=== PATIENT | male | born 1970 | race Caucasian/White ===

== ENCOUNTER 2017-09-28 06:14 | Outpatient (CLI) | payer OTHER ==
[~2017-09-28] VITALS: Ht 177.8 cm; Wt 95.5 kg
--- NOTE | ~2017-09-28 | HEMODYNAMI ---
PATIENT:CESAR BEDOLLA JR MEDICAL RECORD: [id number] : 66 LOCATION:[facility] ADMISSION DATE: 09/28/17 Generatedon:09/28/20178:22 Patient name: CESAR BEDOLLA Patient #: [id number] SSN: : 1970 Date of study: 09/28/2017 Page: Of Hemodynamic Procedure Report Patient Data Patient Demographics Procedure consent was obtained First Name: CESAR Gender: Male Last Name: CHIOMA Suffix: [facility] Initial: Artem : 1970 Patient #: [id number] Age: 46 year(s) Race: Unknown Additional ID: [id number] Contact details Address: [facility] [address] State: [place] City: [place] Zip code: [address] Past Medical History Allergies: No known allergies Admission Admission Data Admission Date: 09/28/2017 Admission Time: 6:14 Lab Results Lab Result Date: 09/28/2017 Lab Result Time: 0:00 Biochemistry Name Units Result Min Max BUN mg/dl 21 --(----)-* 7 18 Creatinine mg/dl 1.6 --(----)-* 0.6 1.3 CBC Name Units Result Min Max Hemoglobin g/dl 17.4 --(---*)-- 13.5 17.5 Procedure Procedure Types Cath Procedure Diagnostic Procedure [facility] w/Coronaries Sedation Charges Moderate Sedation up to 15 minutes Procedure Description Procedure Date Procedure Date: 09/28/2017 Procedure Start Time: 8:00 Procedure End Time: 8:20 Procedure Staff Name Function Luico Hylton MD Performing Physician Mary Murguia RT Scrub Homa Shi RN Nurse Alberto Salinas RT Monitor Procedure Data Cath Procedure Fluoroscopy Diagnostic fluoroscopy Total fluoroscopy Time: 4.5 time: 4.5 min min Diagnostic fluoroscopy Total fluoroscopy dose: 926 dose: 926 mGy mGy Contrast Material Contrast Material Type Amount (ml) Isovue 300 88 Entry Location Entry Primary Successful Side Size Upsize Upsize Entry Closure Brar ccessful Closure Location (Fr) 1 (Fr) 2 (Fr) Remarks Device Remarks Radial Right 6 Fr Mechanical artery Short Compression Estimated blood loss: 5 ml Diagnostic catheters Device Type Used For End Catheter Placement DIAGNOSTIC Michael 110cm Procedure 5Fr catheter ([id number]) DIAGNOSTIC [place] 110cm 5 Procedure Fr catheter ([id number]) DIAGNOSTIC Susan 5Fr Procedure catheter ([id number]) Procedure Complications No complications Procedure Medications Medication Administration Route Dosage Versed I.V. 1 mg Fentanyl I.V. 50 mcg Versed I.V. 1 mg Versed I.V. 1 mg Hemodynamics Rest HGB: 17.4 (g/dl) Heart Rate: 89 (bpm) Pressure Samples Time Site Value (mmHg) Purpose Heart Use Rate(bpm) 8:04 LV 121/-13,6 Snapshot 96 Gradients Valve Time Site Site Mean SEP/DFP Peak To Heart Use 1 2 (mmHg) (sec/min) Peak Rate (mmHg) (bpm) Aortic 8:04 LV AO 89 Snapshots Pre Cath Intra NCS Post Cath Vital Signs Time Heart Resp SPO2 etCO2 NIBP (mmHg) Rhythm Pain Sedation Rate (ipm) (%) (mmHg) Status Level (bpm) 7:50:38 87 13 94 31.5 135/79(104) NSR 0 (11) 10(A) , No pain 7:55:37 89 19 97 34.5 125/75(0) NSR 0 (11) 10(A) , No pain 8:00:53 84 17 94 34.5 119/74(100) NSR 0 (11) 10(A) , No pain 8:05:52 92 15 95 33.8 115/72(0) NSR 0 (11) 9(A) , No pain 8:08:44 100 18 92 30.8 110/70(87) NSR 0 (11) 9(A) , No pain 8:13:43 89 14 94 36 108/65(0) NSR 0 (11) 9(A) , No pain 8:16:53 88 17 92 37.6 95/59(81) NSR 0 (11) 10(A) , No pain Medications Time Medication Route Dose Verified Delivered Reason Notes Effectivene ss by by 8:00:25 Versed I.V. 1 mg Homa merino Jose Guadalupe Jose Guadalupe sedation RN RN 8:00:33 Fentanyl I.V. 50 Homa Homa for mcg Jose Guadalupe Jose Guadalupe sedation RN RN 8:05:20 Versed I.V. 1 mg Homa Homa for Jose Guadalupe Jose Guadalupe sedation RN RN 8:10:24 Versed I.V. 1 mg Homa Ohma for Jose Guadalupe Jose Guadalupe sedation RN platen builder up Log Time Note 7:23:44 Time tracking: Regular hours (M-F 7:00 - 5:00) 7:23:48 Plan of Care:Hemodynamics will remain stable., Cardiac rhythm will remain stable., Comfort level will be maintained., Respiratory function will remain adequate., Patient/ family verbilizes understanding of procedure., Procedure tolerated without complication., Recovers from procedure without complications.. 7:23:49 Signed procedure consent form obtained from patient. 7:23:59 H&P Date Dictated: 09/20/2017 Within 30 days and on chart., H&P Addendum completed by physician on day of procedure. (MUST COMPLETE FOR ALL OUTPATIENTS). 7:24:09 Patient allergic to No known allergies 7:26:22 Lab Result : BUN 21 mg/dl 7:26:22 Lab Result : Creatinine 1.6 mg/dl 7:26:22 Lab Result : Hemoglobin 17.4 g/dl 7:34:06 Mary Murguia RT(R) sent for patient. Start room use. 7:49:35 Vital chart was started 7:53:59 Patient received from Pre/Post Procedure Room to CCL 1 Alert and oriented. Tansferred to table in Supine position. 7:54:00 Warm blankets applied, and ángel hugger turned on for patient comfort. 7:54:01 Correct patient and procedure confirmed by team. 7:54:03 Baseline sample Acquired. 7:54:59 Rhythm: sinus rhythm 7:55:02 Pre-procedure instructions explained to patient. 7:55:03 Pre-op teaching completed and patient verbalized understanding. 7:55:04 Family in waiting room. 7:55:05 Patient NPO since Midnight. 7:55:07 Is the patient allergic to Iodine/contrast media? No. 7:55:08 Is patient on blood thinner?No 7:55:09 Patient diabetic? No. 7:55:12 Previous problem with sedation/anesthesia? No ? 7:55:13 Snore? Yes 7:55:19 Sleep apnea? Possible. Going for a sleep study soon. 7:55:51 Deviated septum? No 7:55:52 Opens mouth fully? Yes 7:55:53 Sticks out tongue? Yes 7:55:56 Airway obstruction? No ? 7:55:58 Dentures? No ? 7:56:01 Modified Ezio's test Ulnar < 7 seconds 7:56:02 Patient pain scale 0/10 ?. 7:56:10 IV patent on arrival in left wrist with 0.9% NaCl at [facility]. 7:56:13 Lab results completed and on chart. 7:56:16 Right Radial & Right Groin area was prepped with chlora-prep and draped in sterile fashion 7:56:17 Alarms reviewed by R. N. 7:56:17 Sharps counted by scrub and verified by R.N. 7:56:20 Use device set Radial Dx or PCI 7:56:21 ACIST Syringe (64858) opened to sterile field. 7:56:21 Medline Cath Pack ([id number]) opened to sterile field. 7:56:21 Bag Decanter (2002S) opened to sterile field. 7:56:23 ACIST Hand Control (88772) opened to sterile field. 7:56:24 ACIST Manifold (63542) opened to sterile field. 7:56:25 Tegaderm 4 x 4 (1626W) opened to sterile field. 7:56:25 MBrace Wrist Support ([id number]) opened to sterile field. 7:56:45 SHEATH 6Fr Prelude Radial ([id number]) opened to sterile field. 7:56:46 DIAGNOSTIC WIRE .035 260cm J wire (623107) opened to sterile field. 7:57:01 Physician arrived 7:57:01 --------ALL STOP TIME OUT------ 7:57:01 Final Timeout: patient, procedure, and site verified with staff and physician. All members of the team are in agreement. 7:57:03 Right Radial & Right Groin site verified by team. 7:57:05 Physical assessment completed. ASA score P 2 - A patient with mild systemic disease as per Lucio Hylton MD. 7:57:07 Sedation plan: IV Moderate Sedation Medication:Versed, Fentanyl 8:00:06 Zero performed for pressure channel P1 8:00:13 Procedure started. 8:00:13 Full Disclosure recording started 8:00:17 Local anesthetic to right radial artery with Lidocaine 2% by Lucio Hylton MD.INITIAL ACCESS ONLY 8:00:25 Versed 1 mg I.V. was administered by Homa Shi RN; for sedation; 8:00:33 Fentanyl 50 mcg I.V. was administered by Homa Shi RN; for sedation; 8:01:33 A 6 Fr Short sheath was inserted into the Right Radial artery 8:02:57 A DIAGNOSTIC Michael 110cm 5Fr catheter (160595) was advanced over the wire and used for Procedure. 8:04:14 LV gram done using VILCHIS 8:04:16 Injector settings: Ml/sec: 5, Volume: 15, 8:04:17 LV hemodynamics recorded. 8:04:26 EF : 55 % 8:05:20 Versed 1 mg I.V. was administered by Homa Shi RN; for sedation; 8:05:28 RCA angiography performed. 8:06:24 Catheter exchanged over wire. 8:06:36 A DIAGNOSTIC Alg[place] 110cm 5 Fr catheter ([id number]) was advanced over the wire and used for Procedure. 8:08:58 Catheter removed. unable to cannulate vessel. 8:09:06 A DIAGNOSTIC Susan 5Fr catheter (578863) was advanced over the wire and used for Procedure. 8:10:24 Versed 1 mg I.V. was administered by Homa Shi RN; for sedation; 8:11:00 LCA angiography performed. 8:14:21 Catheter removed. 8:16:11 Sheath removed intact; hemostasis achieved with Mechanical Compression to the Right Radial artery. 8:16:12 Procedure ended.(Physican Out) 8:16:41 Fluoroscopy time 04.50 minutes. 8:16:45 Fluoroscopy dose: 926 mGy 8:16:45 Flurop Dose total: 926 8:16:51 Contrast amount:Isovue 300 88ml. 8:16:52 Sharps counted by scrub and verified by R.N. 8:16:58 TR band inflated with 12cc of air. 8:16:59 Insertion/operative site no bleeding no hematoma. 8:17:05 Post right radial artery:stable, soft, clean and dry 8:17:08 Post-procedure physical assessment completed. ASA score P 2 - A patient with mild systemic disease as per Lucio Hylton MD. 8:17:10 Post procedure rhythm: unchanged. 8:17:14 Estimated blood loss: 5 ml 8:17:49 Post procedure instruction explained to patient.Patient verbalizes understanding. 8:17:49 Patient needs reinforcement of post procedure teaching. 8:18:21 Procedure type changed to Cath procedure, Diagnostic procedure, LHC, LHC w/Coronaries, Sedation Charges, Moderate Sedation up to 15 minutes 8:19:32 TR BAND Standard ([id number]) opened to sterile field. 8:19:51 Procedure and supply charges have been captured, reviewed, submitted and are correct. 8:19:54 Procedure Complication : No complications 8:19:56 Vital chart was stopped 8:19:56 See physician's report for complete and final results. 8:19:58 Report given to Pre/Post Procedure Room. 8:20:01 Patient transfered to Pre/Post Procedure Room with Stretcher. 8:20:04 Procedure ended. 8:20:04 Full Disclosure recording stopped 8:20:08 End room use (Document Last) Device Usage Item Name Manufacture Quantity Catalog Number Hospital Part Current M inimal Lot# / Charge Number Stock Stock Serial# Code ACIST Syringe Acist 1 87510 778097 836001 [id number] 2 0 (28588) [employer] Medline Cath Cardinal 1 [id number] 206787 82017 434182 5 Pack Health ([id number]) Bag Decanter Microtek 1 2001S 775757 37029 636434 5 (2001S) Medical Inc. ACIST Hand Acist 1 31893 439302 490536 223249 5 Control (63753) [employer] ACIST Manifold Acist 1 52870 666998 356383 049003 5 (38258) [employer] Tegaderm 4 x 4 3M 1 1626W 335445 193138 096513 5 (1626W) MBrace Wrist Advanced 1 140-0250-00 279910 83715 984259 5 Support Vascular ([id number]) Dynamics SHEATH 6Fr Merit 1 [id number] 043980 850750 535039 5 Prelude Radial Medical ([id number]) DIAGNOSTIC WIRE St Fritz 1 647468 437514 626373 103032 3 0 .035 260cm J wire (242537) DIAGNOSTIC Terumo 1 405023 690438 362048 687830 5 Michael 110cm 5Fr catheter (875664) DIAGNOSTIC Terumo 1 40-5013 431189 721135 762757 5 [place] 110cm 5 Fr catheter (107338) DIAGNOSTIC Terumo 1 405022 535078 234677 537375 5 Susan 5Fr catheter (301920) TR BAND Terumo 1 [id number] 984014 607375 054533 4 0 Standard ([id number]) Signature Audit [place] Stage Time Signature Unsigned Intra-Procedure 09/28/2017 Alberto Salinas 8:22:15 AM RT(R) Signatures Monitor : Alberto Salinas RT Signature : Date : Time : [id number] [place] [address]
[~2017-09-28 06:14] MED LIST: EXFORGE 10-1601 TAB PO; HYDROCODON-ACE1 EAC7 PO; TESTOSTERON200 MG/ML; ZOVIRAX400 MG PO
[2017-09-28 06:50] VITALS: BP 123/80; Ht 177.8 cm; Wt 95.5 kg
[2017-09-28 06:54] LABS: BASOPHILS 0.6 % (0-2); EOSINOPHILS 5.8 % (0-7); HEMATOCRIT 49.5 % (42.0-54.0); HEMOGLOBIN 17.4 g/dL (13.5-17.5); IMMATURE GRANULOCYTES 0.3 % (0-5); LYMPHOCYTES 12.1 % (15-50); MCH 33.5 pg (26.0-34.0); MCHC 35.2 g/dL (31.0-37.0); MCV 95.2 fL (80.0-100.0); MEAN PLATELET VOLUME 9.4 fL (7.4-10.4); MONOCYTES 11.2 % (2-11); PLATELET COUNT 181 10x3/uL (130-400); RDW 12.2 % (11.5-14.5); WBC 8.6 10x3/uL (4.8-10.8)
[2017-09-28] MEDS ORDERED: [UNRECOGNIZED DRUG - OTHER] (06:56)
[2017-09-28] MEDS ORDERED: ANASTROZOLE1 MG PO (06:57)
[2017-09-28 07:06] LABS: ANION GAP 15.5 mmol/L (8-16); CALCIUM 9.2 mg/dL (8.5-10.1); CARBON DIOXIDE 23.3 mmol/L (21.0-32.0); CREATININE - SERUM 1.6 mg/dL (0.6-1.3); POTASSIUM - SERUM 3.8 mmol/L (3.5-5.1)
== END 2017-09-28 11:00 | disposition home or self-care (01) ==
LOC: D.CATH 06:14
PROVIDERS: Internal Medicine Cardiovascular Disease
DX: I20.9 Angina pectoris, unspecified (principal); Z01.812 Encounter for preprocedural laboratory examination

== ENCOUNTER → 2019-11-11 12:03 | Outpatient (CLI) | payer OTHER ==
[2017-09-28 06:50] VITALS: BMI 30.1
[~2019-11-11 12:03] MED LIST changes: +ANASTROZOLE1 MG PO; +[UNRECOGNIZED DRUG - OTHER]
== END | disposition home or self-care (01) ==
LOC: D.HCCARDIO 12:03
PROVIDERS: ATTEND Internal Medicine Cardiovascular Disease
DX: R07.9 Chest pain, unspecified (principal)